=== PATIENT | male | born 1975 | race Two or more races ===

== ENCOUNTER 2025-10-25 14:12 | Emergency (ER) | payer MEDICAID, SELFPAY ==
[2025-10-25 14:42] VITALS: BP 119/76; PULSE 75; RESP 18; TEMP 36.8; O2SAT 97; BMI 27.5
--- NOTE | 2025-10-25 15:05 | PD.EDRME ---
Rapid Medical Screening Exam RME Arrival date/time: 10/25/25 14:12 49-year-old male presents to the emergency department today for complaints of diarrhea ongoing since Wednesday Chief Complaint: Nausea/Vomiting/Diarrhea Vital signs: Vital Signs Temperature 98.2 F 10/25/25 14:42 Pulse Rate 75 10/25/25 14:42 Respiratory Rate 18 10/25/25 14:42 Blood Pressure 119/76 10/25/25 14:42 Pulse Oximetry (%) 97 10/25/25 14:42 Oxygen Delivery Method Room Air 10/25/25 14:42 Vital signs reviewed by provider: Yes Exam: On exam well-appearing does not appear ill or toxic Clinical Impression: Lab work ordered
[2025-10-25 16:23] LABS: Collection Type, Urine Clean Catch
[2025-10-25 16:28] LABS: Basophils # (Auto) 0.0 Thou/mm3 (0.0-0.2); Basophils % (Auto) 0 % (0-2.5); Eosinophils # (Auto) 0.1 Thou/mm3 (0.0-0.5); Eosinophils % (Auto) 2 % (0-10); Hematocrit 42.1 % (41.0-53.0); Hemoglobin 14.6 g/dL (13.5-16.0); Immature Granulocytes Auto 0.02 Thou/mm3 (0.00-0.00); Lymphocytes # (Auto) 1.6 Thou/mm3 (1.0-4.8); Lymphocytes % (Auto) 34 % (10-50); Mean Corpuscular HGB Conc 34.7 g/dl (31.0-37.0); Mean Corpuscular Hemoglobin 30.3 pg (25.0-35.0); Mean Corpuscular Volume 87 fL (80-100); Monocytes # (Auto) 0.4 Thou/mm3 (0.0-0.8); Monocytes % (Auto) 9 % (0-12); Neutrophils # (Auto) 2.4 Thou/mm3 (1.8-7.7); Neutrophils % (Auto) 54 % (37-80); Nucleated Red Blood Cell # 0.00 Thou/mm3 (0.00-0.00); Nucleated Red Blood Cell % 0 /100 WBC (0); Platelet Count 186 Thou/mm3 (140-440); RDW Standard Deviation 38.6 fL (35.1-43.9); Red Blood Count 4.82 Miln/mm3 (4.50-5.90); White Blood Count 4.5 Thou/mm3 (3.8-10.6)
[2025-10-25 16:46] LABS: Alanine Aminotransferase 37 U/L (10-49); Albumin, Serum 4.4 gm/dL (3.5-5.0); Albumin/Globulin Ratio 1.7 (1.2-2.2); Alkaline Phosphatase 90 U/L (46-116); Anion Gap 9 (7-16); Aspartate Amino Transferase 34 U/L (0-34); BUN/Creatinine Ratio 9 Ratio (12-20); Bilirubin,Total 0.7 mg/dL (0.3-1.2); Blood Urea Nitrogen 8 mg/dL (9-23); Calcium 8.7 mg/dL (8.3-10.6); Calcium (Corrected) 8.7 mg/dL (8.5-10.1); Carbon Dioxide 27.6 mMol/L (20.0-31.0); Chloride 106 mMol/L (98-107); Creatinine (Component) 0.9 mg/dL (0.6-1.3); Estimated Creatinine Clearance 106.0 mL/min (>60); Globulin 2.6 gm/dL (2.3-3.5); Glucose 82 mg/dL (74-106); Lipase 28 U/L (12-53); Magnesium 1.7 mg/dL (1.6-2.6); Osmolality,Calculated 282 (275-295); Potassium 4.2 mMol/L (3.4-5.1); Sodium 143 mMol/L (136-145); Total Protein 7.0 gm/dL (5.7-8.2); eGFR > 60 See Note
[2025-10-25 16:53] LABS: Bilirubin,Urine Negative (Negative); Blood,Urine 1+ (Negative); Color,Urine Yellow (Lt Yel-Yel); Culture Indicated,Urine Not Indicated; Glucose, Urine Negative (Negative); Ketones,Urine Negative (Negative); Leukocyte Esterase,Urine Negative (Negative); Nitrite,Urine Negative (Negative); PH,Urine 5.5 (5.0-7.0); Protein,Urine Negative (Neg - Trace); RBC,Urine 9 /hpf (0-3); Specific Gravity,Urine 1.024 (1.001-1.035); Squamous Epithelial Cell,Urine < 1 /hpf (0-5); Urobilinogen,Urine Negative mg/dL (0.0-1.0); WBC,Urine 3 /hpf (0-5)
[2025-10-25 16:58] LABS: Clarity,Urine Hazy (Clear/Hazy)
[2025-10-25 20:35] VITALS: BP 138/85; PULSE 65; RESP 18; O2SAT 98
--- NOTE | 2025-10-25 21:20 | PD.EDADULT ---
ED General RME/HPI General Chief complaint: Nausea/Vomiting/Diarrhea Stated complaint: Vomiting, diarrhea since Wednesday Time Seen by Provider: 10/25/25 18:21 Arrival date/time: 10/25/25 14:12 RME / HPI complaint: Patient returned from [facility] 2 weeks ago with acute onset febrile illness. RME / HPI narrative: 10/25/25 14:12 49-year-old male presents to the emergency department today for complaints of diarrhea ongoing since Wednesday. There has been transient fever and mild abdominal cramping. No bloody stools. No obvious infectious exposures. Exam: On exam well-appearing does not appear ill or toxic Impression: Lab work ordered Related Data Previous Rx's ?Medication ?Instructions ?Recorded promethazine 12.5 mg tablet 12.5 mg PO TID PRN nausea and 10/25/25 vomiting/ abd cramping #14 tabs Allergies Allergy/AdvReac Type Severity Reaction Status Date / Time No Known Drug Allergies Allergy Verified 10/25/25 14:16 Review of Systems Review of Systems Systems Reviewed: All systems reviewed, normal except as documented Course Course Course Narrative: 49-year-old male presents to the emergency department today for complaints of diarrhea ongoing since Wednesday. There has been transient fever and mild abdominal cramping. Please see PE findings. Laboratory markers demonstrate relatively low white count of 4.5. Normal hemoglobin and hematocrit. Platelet count within normal limits. No left shift or associated bandemia. Serum chemistries were essentially unremarkable. Urinalysis without evidence of infection. Patient was hydrated with saline treated with low-dose IV narcotic analgesia/antiemetics with mild to moderate relief. On serial evaluation reports overall improvement. Will treat symptomatically Quality Measures none Orders Category Date Time Status CBC Stat Lab 10/25/25 15:42 Completed Comprehensive Metabolic Panel Stat Lab 10/25/25 15:42 Completed Lipase Stat Lab 10/25/25 15:42 Completed Mag [Magnesium] Stat Lab 10/25/25 15:42 Completed UA, C/S IF [Urinalysis, C/S if Indicated] Stat Lab 10/25/25 16:14 Completed Vital Signs Vital signs: Vital Signs Temperature 98.2 F 10/25/25 14:42 Pulse Rate 75 10/25/25 14:42 Respiratory Rate 18 10/25/25 14:42 Blood Pressure 119/76 10/25/25 14:42 Pulse Oximetry (%) 97 10/25/25 14:42 Oxygen Delivery Method Room Air 10/25/25 14:42 Discharge Plan Plan Patient Disposition: HOME (Self Care) Discharge Disposition comment: Stable Prescriptions/Referrals Prescriptions/Med Rec: New promethazine 12.5 mg tablet 12.5 mg PO TID PRN (Reason: nausea and vomiting/ abd cramping) Qty: 14 0RF Referrals: Toy Mendoza MD [Primary Care Provider, Pediatrics] - In 1 week Problem List Clinical Impression: Traveler's diarrhea Impression comment: Acute diarrheal illness Patient/Caregiver Discharge Instructions Discharge Activity: activity as tolerated Diet Instructions: Maintain clear liquid diet for 24 to 48 hours. Education Materials: ED Diarrhea Traveler Inf Td Additional Instructions: Maintain clear liquid diet for 24 to 48 hours. Avoid dairy products for 1 to 2 weeks. No hot spicy foods or caffeinated beverages for 1 week. Gradually advance diet as tolerated. Substitute Zofran with Phenergan. Continue Imodium as needed. Return if fever escalating abdominal pain persistent vomiting or worsening illness. Print Language: Czech Stand Alone Forms: [employer] Award Info., Patient Portal Info Letter MDM Clinical Information Provided by: patient Medical Records reviewed None Meds/Rx considered, not ordered None Labs/Rad/Tests considered, not ordered None Chronic Illness/Social Conditions which may negatively complicate care or outcome(s)-explain: None or not applicable EKG EKG not done Labs Labs: interpreted by me Imaging Imaging interpretation: none Medication Administration(s) See MAR Diagnosis Differential Diagnosis ED Complaint MDM: Diagnostic consideration clued viral versus bacterial versus protozoal ente
[2025-10-25 21:30] VITALS: BP 138/85; PULSE 68; RESP 18; O2SAT 98
== END 2025-10-25 21:33 | disposition home or self-care (01) ==
PROVIDERS: Nurse Practitioner Primary Care; Emergency Provider Emergency Medicine; PCP Pediatrics
DX: R19.7 Diarrhea, unspecified (principal); R10.9 Unspecified abdominal pain; R50.9 Fever, unspecified; R11.2 Nausea with vomiting, unspecified
CPT/HCPCS: 36415; 80053; 81001; 83690; 83735; 85025; 87205; 87493; 99282